=== PATIENT | female | born 2000 | race Caucasian/White ===

== ENCOUNTER 2022-09-29 13:27 | Outpatient (CLI) | payer OTHER ==
--- NOTE | 2022-09-29 16:49 | MRI Report ---
PROCEDURE: LUMBAR SPINE WO INDICATIONS: LOW BACK PAIN TECHNIQUE: Noncontrast sagittal T1 spin echo and T2 fast echo, sagittal STIR, axial T1 and T2 fast spin echo thr ough the lumbar spine. In cases with scoliosis, additional coronal T2 fast spin echo may be performe d. COMPARISON: None. FINDINGS: Image quality: Excellent. Alignment and Curvature: There is normal bony alignment. Bone Marrow: Marrow is of normal overall signal. No acute vertebral body compression fractures. Spinal Cord: Conus medullaris terminates at the L2 level. Visualized cord demonstrates normal signa l and size. Paraspinous Soft Tissues: No paravertebral masses. T12-L1: Normal. L1-L2: Normal. L2-L3: Minor ligamentum flavum hypertrophy. Otherwise normal. L3-L4: Normal. L4-L5: Minimal circumferential disc bulge. No significant encroachment on the lateral recess ease o r central canal. No foraminal narrowing. L5-S1: Mild diffuse disc desiccation and slight posterior disc height loss. Small broad-based poste rior disc bulge. There is a small central and left central disc herniation with trace amount of extru ded material just below the disc line which encroaches on the left lateral recess, compressing and di splacing the left S1 nerve root. No significant central canal or neural foraminal stenosis. IMPRESSION: 1. Small L5-S1 disc herniation which may affect the left S1 nerve root. Correlate clinically. Reviewed by: Aurea Kang MD on 09/29/2022 3:48 PM [facility] Approved by: Aurea Kang MD on 09/29/2022 3:48 PM [facility] Station ID: [id number]
== END 2022-09-29 13:28 | disposition home or self-care (01) ==
LOC: DI 13:27
DX: M51.27 Other intervertebral disc displacement, lumbosacral region (principal)

== ENCOUNTER 2024-01-12 08:00 | Outpatient (CLI) | payer OTHER ==
[2024-01-12 16:28] LABS: BILIRUBIN,URINE NEGATIVE (NEGATIVE); GLUCOSE, URINE (UA) NEGATIVE (NEGATIVE); KETONES,URINE (UA) TRACE mg/dL (NEGATIVE); LEUKOCYTE ESTERASE, URINE NEGATIVE (NEGATIVE); NITRITE,URINE NEGATIVE (NEGATIVE); OCCULT BLOOD,URINE NEGATIVE (NEGATIVE); PROTEIN,URINE NEGATIVE (NEGATIVE); UROBILINOGEN,URINE 0.2 (NORMAL) E.U./dL (NORMAL)
[2024-01-12 16:39] LABS: BACTERIA,URINE None Seen /HPF (None Seen); CLARITY,URINE CLEAR (CLEAR); CRYSTALS,URINE 3-5 Uric Acid /LPF; RBC,URINE None Seen /HPF (0-5); SQUAMOUS EPITHELIAL CELL,UR RARE Squamous (<= Few); WBC,URINE 0-3 /HPF (0-5)
== END 2024-01-12 23:59 | disposition home or self-care (01) ==
LOC: LAB.WC 08:00
PROVIDERS: ATTEND Nurse Practitioner
DX: Z34.00 Encounter for supervision of normal first pregnancy, unspecified trimester (principal)
CPT/HCPCS: 81001; 87086

== ENCOUNTER 2024-08-17 12:44 | Inpatient (IN) ==
[2024-08-17] MEDS: AMPICILLIN 2 GM in SODIUM CHLORIDE 0.9% MINIBAG 100 ML IV SCH (12:27)
[~2024-08-17 12:44] MED LIST: AMPICILLIN 2 GM VIAL IV ONE
[2024-08-17] MEDS ORDERED: OXYTOCIN/SODIUM CHLORIDE 500 ML IV PRN ×2 (12:49→15:28)
[2024-08-17] MEDS ORDERED: NIFEdipine 10 MG CAPSULE PO PRN ×2 (12:49→15:28)
[2024-08-17] MEDS ORDERED: METHYLERGONOVINE 0.2 MG/ML VIAL IM PRN (12:49)
[2024-08-17] MEDS ORDERED: OXYTOCIN 10 UNIT/ML VIAL IM PRN (12:49)
[2024-08-17] MEDS ORDERED: TRANEXAMIC ACID IN NACL 1,000 MG/100 ML BAG IV PRN (12:49)
[2024-08-17] MEDS ORDERED: miSOPROStoL 200 MCG TABLET PR PRN (12:49)
[2024-08-17] MEDS ORDERED: fentaNYL 100 MCG/2 ML VIAL IVP PRN (12:49)
[2024-08-17] MEDS ORDERED: LABETALOL 20 MG/4 ML SYRINGE IVP PRN ×5 (12:49→15:28)
[2024-08-17] MEDS ORDERED: TERBUTALINE 1 MG/ML VIAL SUBQ PRN (12:49)
[2024-08-17] MEDS ORDERED: SODIUM CHLORIDE FLUSH 0.9% 10 ML SYRINGE IVP PRN (12:49)
[2024-08-17] MEDS ORDERED: hydrALAZINE INJ 20 MG/ML VIAL IVP PRN ×3 (12:49→15:28)
--- OUTSIDE RECORDS SUMMARY | 2024-08-17 12:55 | EXTERNAL MEDICAL SUMMARY RPT | Continuity of Care Document ---
Author Organization [facility] Address [address] [place] [id number] Phone Problems date description facility 2024-05-24 11:29 Encounter for superv ision of normal first , second trimester [facility] 2024-05-24 11:29 Encounter for superv ision of normal , unspecified, unspecified trimester [facility] 2024-05-25 00:06 Encounter for superv ision of normal first , second trimester [facility] 2024-05-25 00:06 Encounter for superv ision of normal , unspecified, unspecified trimester [facility] 2024-05-25 14:49 Encounter for superv ision of normal first , second trimester [facility] 2024-05-25 18:35 Abnormal glucose complicating p regnancy [facility] 2024-05-28 11:24 Abnormal glucose complicating p regnancy [facility] 2024-05-29 08:09 Abnormal glucose complicating p regnancy [facility] 2024-05-30 00:03 Abnormal glucose complicating p regnancy [facility] 2024-06-08 14:18 Encounter for immunization id [facility] 2024-06-09 00:01 Encounter [facility] 2024-06-19 15:22 Other specified noninflammatory disorders of vagina [facility] 2024-06-19 15:22 Other specified preg janes related conditions, unspecified trimester [facility] 2024-06-19 15:22 Encounter for screen ing for infections with a predominantly sexual mode of transmission [facility] 2024-06-20 00:02 Other specified noninflammatory disorders of vagina [facility] 2024-06-20 00:02 Other specified preg janes related conditions, unspecified trimester [facility] 2024-06-20 00:04 Other specified noninflammatory disorders of vagina [facility] 2024-06-20 00:04 Other specified preg janes related conditions, unspecified trimester [facility] 2024-06-20 00:04 Encounter for screen ing for infections with a predominantly sexual mode of transmission [facility] 2024-06-23 11:28 Other specified preg janes related conditions, unspecified trimester [facility] 2024-07-26 10:36 Other infections wit h a predominantly sexual mode of transmission complicating , first trimester [facility] 2024-07-26 10:36 Encounter for superv ision of normal first , unspecified trimester [facility] 2024-07-26 10:36 Encounter for superv ision of normal , unspecified, unspecified trimester [facility] 2024-07-26 10:37 Other infections wit h a predominantly sexual mode of transmission complicating , first trimester [facility] 2024-07-26 10:37 Encounter for superv ision of normal first , unspecified trimester [facility] 2024-07-26 10:37 Encounter for superv ision of normal first , second trimester [facility] 2024-07-26 10:38 Other specified anxiety disorde rs [facility] 2024-07-26 10:38 Abnormal glucose complicating p regnancy [facility] 2024-07-26 10:39 Encounter for immunization [facility] [employer] 2024-08-03 14:04 Encounter for screeni ng for Streptococcus B [facility] 2024-08-03 14:39 Encounter for screeni ng for Streptococcus B [facility] 2024-08-03 14:51 Encounter for screeni ng for Streptococcus B [facility] 2024-08-03 14:53 Encounter for screeni ng for Streptococcus B [facility] 2024-08-04 00:03 Encounter for screeni ng for Streptococcus B [facility] 2024-08-08 15:10 Encounter for screeni ng for Streptococcus B [facility] 2024-08-10 14:27 Encounter for screen ing for infections with a predominantly sexual mode of transmission [facility] 2024-08-10 16:10 Encounter for screen ing for infections with a predominantly sexual mode of transmission [facility] 2024-08-13 08:44 Encounter for screen ing for infections with a predominantly sexual mode of transmission [facility] 2024-08-14 12:06 Encounter for screen ing for infections with a predominantly sexual mode of transmission [facility] 2024-08-15 09:49 Encounter for superv ision of normal first , unspecified trimester [facility] Results/Labs test date facility value unit notes Result panel 1 HGB - HEMOGLOBIN 2024-05-24 12:40 [facility] 11.7 g /dl (missing) RED CELL DISTRIBUTION WIDTH 2024-05-24 12:40 [facility] 12.6 % (missing) GLUCOSE,1H PP 50GM DOSE 2024-05-24 12:40 [facility] 141 mg/dl Social History date description facility
[2024-08-17 13:22] LABS: BASOPHILS % (AUTO) 0.2 %; EOSINOPHILS % (AUTO) 0.2 %; HCT - HEMATOCRIT 35.4 % (37.0-47.0); HGB - HEMOGLOBIN 10.9 g/dL (12.0-16.0); LYMPHOCYTES # (AUTO) 1.5 10^3/uL (1.5-3.5); MEAN CORPUSCULAR HEMOGLOBIN 24.9 pg (27.0-31.0); MEAN CORPUSCULAR HGB CONC 30.8 g/dL (32.0-36.0); MEAN PLATELET VOLUME 10.7 fL (7.9-10.8); MONOCYTES # (AUTO) 0.5 10^3/uL (0.0-1.0); MONOCYTES % (AUTO) 3.8 %; NEUTROPHILS # (AUTO) 10.3 10^3/uL (1.5-6.6); NEUTROPHILS % (AUTO) 83.4 %; PLT - PLATELET COUNT 296 10^3/uL (130-450); RED BLOOD COUNT 4.37 10^6/uL (4.20-5.40); RED CELL DISTRIBUTION WIDTH 14.4 % (12.0-15.0); WHITE BLOOD COUNT 12.3 x10^3/uL (4.8-10.8)
[2024-08-17] MEDS: OXYTOCIN/SODIUM CHLORIDE 500 ML IV SCH (14:28)
[2024-08-17] MEDS: LACTATED RINGERS 1,000 ML IV PRN (14:29)
[2024-08-17] MEDS: fentaNYL 100 MCG/2 ML VIAL IVP PRN (15:01)
[2024-08-17] MEDS: SODIUM CHLORIDE FLUSH 0.9% 10 ML SYRINGE IVP SCH (15:03)
[2024-08-17] MEDS: miSOPROStoL 200 MCG TABLET BC PRN (15:11)
[2024-08-17] MEDS: lidocaine 1% 20 ML MDV ID PRN (15:13)
--- NOTE | 2024-08-17 15:27 | HISTORY & PHYSICAL EXAMINATION ---
Admit History Smoking Status: Never smoker Other Maternal History Other Maternal History: HPI: This 23 yo @ 38+3 weeks by 11+2 week ultrasound. She was able to doze some last night but her contractions started to become intermittent at 0430 then significantly increased in pain by 1030. The contractions became stronger and closer together. She presented to clinic for SVE and was 8cm and was wheelchaired to L&D from clinic. Upon arrival her cervix was 9.5 cm/ +1 station and vertex with intact membranes and began pushing. Screaming in pain. She has been a patient of [facility] for the duration of her which has remained uncomplicated with the exception anxiety, managed well on zoloft and positive Chlamydia in the first trimester followed by negative rescreen x2. ROS: No Headache, visual changes or right upper quadrant abdominal pain. Denies significant N/V. Denies urinary urgency or dysuria. All other symptoms reviewed and were negative except per HPI. In the event of an emergency, accepts the administration of blood products. LMP: 11/12/2023 RAMSEY by LMP:08/18/2024 U/S: Final RAMSEY: 08/19/2023 ALLERGiES: Latex RX: stool softner, mag, pnv, zoloft In the event of an emergency, DOES accept the administration of blood products. Medical Hx: Anxiety/Depression, Herniated lumbar intervertebral disc Surgical Hx: None Social Hx: Monogamous with male partner George who is active duty. She is also active duty [place]. Denies current use of alcohol or tobacco, marijuana or other recreational drugs. Reports that she is safe in current relationship. FOB: George Mehta-currently deployed sex/name: It's a BOY! PROBLEMS: FOB had hole in heart as a baby +Chlamydia in 1st trimester, TYLER negative. -3rd trimester GC/CT @ 29wks - negative Anxiety/Depression: -Sertraline initiated @ 26wks -Counseling referral initiated Pre- weight: 120 BMI: 19.4 Blood type: A Antibody screen: positive CBC: PLT 256 HCT 38.9 HGB 13.0 Rubella: Immune VZV: Immune HBsAg: Negative HepC: RPR/AB-EIA: NR HIV: NR Flu: declined COVID: PAP: GC/CT: + chlam 1st trimester (treated) -TYLER: collected 03/30/2024-negative - 3rd trimester GCCT: (06/19/2023) negative HSV: denies in self and partner Genetic Testing: - Quad screen neg FAS: 04/16 Placenta: Posterior, no previa Cord: 3VC ARPIT: 11.5cm EFW: 51%tile 50gm GCT: 141 3 hr GTT: F 83; 1h 182; 2hr 147 hr; 113 TDAP: 06/08/2024 Breast Pump: 06/08/2024 3rd trimester 11.7/36.5, PLT 273 RPR: NR GBS: Positive 08/03/24 3rd trimester GCCT: (06/19/2023) negative Delivery plan: MOD: Anticipate contraception: Physical exam: Normocephalic, atraumatic Heart RRR w/o M/G/R Lungs CTAB Abdomen gravid, soft, nontender. EFW 2900 FHR baseline 130, moderate variability, + accelerations, no decelerations Contractions palpate moderate every 3-7 minutes with soft resting tone SVE 9.5/+1 station, vertex, membranes intact Bilateral LE's no edema Transitional labor mood behaviors Assessment: 23 yo @ 38+2 weeks gestation by 11 wk U/S second stage labor FHR 130 Cat I GBS POSITIVE Plan: Admit to FBP for delivery Begin GBS prophylaxis, ampicillin 2g loading followed by 1g q 4 hours. Continuous monitoring/ Intermittent heart rate auscultation. Nitrous oxide PRN. Anticipate . Meds/Allgy Home Medications Ambulatory Orders Medication Instructions Recorded Confirmed vitamins no.68-iron 28 1 cap PO QDAY 02/10/24 08/17/24 mg-folate no.6 1 mg-dha 400 mg capsule sertraline 50 mg tablet 50 mg PO QDAY #90 tabs 05/25/24 08/17/24 Allergies Allergies Allergy/AdvReac Type Severity Reaction Status Date / Time Latex, Natural Rubber Allergy Intermediate Rash Verified 08/16/24 17:12 PFSH Active Problems All Active Problems (Updated 06/19/24 @ 15:21 by Saira Gabriel MA) Vaginal discharge during (Acute) Anxiety associated with depression (Acute) Situational mixed anxiety and depressive disorder (Acute) (Acute) Supervision of normal first (Acute) Sexually transmitted infection during in first trimester (Acute) Chronic back pain (Acute) Herniated lumbar intervertebral disc (Acute) Primigravida (Acute) Surgical History Surgical History (Updated 02/10/24 @ 13:30 by Saira Gabriel MA) H/O breast biopsy 2017 Family History Family History (Updated 02/15/24 @ 10:34 by Iona Goodman, [place]) Paternal grandfather No problems noted. Maternal grandmother No problems noted. Paternal grandmother Skin cancer Social History Social History (Updated 02/15/24 @ 10:35 by Iona Goodman RN) Smoking Status: Never smoker Second hand tobacco smoke exposure: No Do you dip or chew tobacco?: No Do you vape?: No Living arrangement: At home Level: Independent Do you feel safe in your home environment?: Yes Suffered physical, verbal, emotional, or financial abuse?: No History of Abuse: No ETOH Use: None Substance Use: denies use Occupation: [employer] Plan for Labor Plan For Labor I expect patient to be DC'd or transferred within 96 hours.: Yes Conclusion/Plan Lab Results 08/17/24 12:15
[2024-08-17] MEDS ORDERED: SIMETHICONE CHEW 80 MG TABLET PO PRN (15:28)
[2024-08-17] MEDS ORDERED: LABETALOL 5 MG/1 ML 20 ML MDV IVP PRN (15:28)
[2024-08-17] MEDS ORDERED: NALOXONE 0.4 MG/ML VIAL IVP PRN (15:28)
--- NOTE | 2024-08-17 15:28 | DELIVERY NOTE ---
Delivery Note Delivery Comments (Free Text/Narrative) Delivery Comments (Free Text/Narrative): This 23 -year-old, G 1 P 0 @ 38+3 weeks gestation by 11 week ultrasound @ 1230 after SVE in clinic and quickly progressed to second stage. GBS positive, treated x1 ampicillin. Cervix was 9.5 and Vertex presentation by exam. Pitocin max dose of 2mu/min was introduced shortly before delivery to expidite pushing as patient was not tolerating unmedicated pushing. FHR pattern demonstrated 135 baseline with a mostly category I tracing through the second stage. Precipitous labor course. SROM with pushing @ 1247. : Normal spontaneous vaginal delivery of a viable male on 08/18/2024 @ 1455. The was placed on maternal abdomen, stimulated, dried and placed skin to skin. Apgars 9 & 9 @ 1 & 5 minutes. The umbilical cord was allowed to stop pulsating at which time it was doubly clamped by delivering provider and cut by FOB. 3VC. Cord blood was obtained. Fundal massage and gently cord traction applied for active management of the third stage, placenta delivered spontaneously and intact and appeared normal. QBL 1247g. Placenta was not sent to pathology. Pitocin administered via IV for hemostasis and allowed to run freely. Bleeding remained brisk, uterine atony. Uterine massage was perfor med until uterus was deemed firm, would become boggy, and massage repeated until firm. weight: 3194g. Perineum intact. Bilateral labial minora superficial lacerations, hemostatic, not repaired. Upon re-inspection the patient was hemostatic. Uterus again massaged and found to be firm. Needle and sponge counts were correct. Uterine fundus firm and there is no excessive bleeding. Tissues well approximated. Skin to skin initiated. Family bonding well. Both mother and baby are in stable condition.
[2024-08-17] MEDS: IBUPROFEN 600 MG TABLET PO PRN (16:43)
[2024-08-17] MEDS: GABAPENTIN 300 MG CAPSULE PO PRN (16:43)
[2024-08-17] MEDS: ACETAMINOPHEN 500 MG TABLET PO PRN (16:44)
--- NOTE | 2024-08-17 17:10 | PHARMACY PROGRESS NOTE ---
Best Possible Medication History Admit Date and Time: 08/17/24 [id number] Home Medications Medication Instructions Recorded Confirmed Type vitamins no.68-iron 28 1 cap PO QDAY 02/10/24 08/17/24 History mg-folate no.6 1 mg-dha 400 mg capsule sertraline 50 mg tablet 50 mg PO QDAY #90 tabs 05/25/24 08/17/24 Rx Processed by: Pharmacy Medications reviewed in ED?: Yes Medication History completed: Yes Patient Interview: Pt unable to participate Secondary Source(s): Insurance records [facility] Statement: Per RN interview with patient and review of [facility] Rx records. As the person ultimately responsible for medication therapy, providers are able to order a medication from an existing home medication list in [facility] via the "Reconcile Routine" prior to Confirmation of that medication by student support counselor. Such practice is discouraged except when the physician, in their clinical judgment, deems that a medical need exists for a medication without regard to previous use.
[2024-08-17] MEDS: DOCUSATE SODIUM 100 MG CAPSULE PO SCH (21:48)
[2024-08-18] MEDS: PRENATAL VITAMIN TABLET PO SCH (08:38)
[2024-08-18] MEDS: SERTRALINE 50 MG TABLET PO SCH (08:39)
--- NOTE | 2024-08-18 09:47 | PROVIDER PROGRESS NOTE ---
Subjective Prog Note Date Prog Note Date: 08/18/24 Prog Note Time: 17:00 Subjective Subjective: Subjective: Patient reports she is doing well. Comfortable WITHOUT narcotic pain management Lochia appropriate. Denies heavy bleeding. Ambulating. Pelvic and abdominal pain well-controlled. Tolerating oral intake. Diet: Regular. Voiding without difficulty. Passing flatus. Denies BM. Patient is bonding with baby in room Breast feeding going well. Denies feeling lightheaded, dizzy or excessively fatigued. Objective General: Alert, oriented, no apparent distress. Cardiovascular: No edema. Lungs: No increased work of breathing. Abdomen: Uterus firm. Below umbilicus. No guarding or rebound tenderness. Extremities: No pain on palpation. Distal pulses intact. Assessment and Plan day 1. 23yo s/p (unmedicated) on 08/17/2024 following spontaneous onset of precipitous labor elective. - Routine - Anticipate discharge tomorrow - well supported by . Acute anemia due to hemorrhage. -H&H drop from 10.9/35.4 to 8.2/26.1 -Asymptomatic, showered and ambulated without dizziness, lightheadedness or SOA - Discussed iV iron vs oral iron. Would like to begin oral iron as she is not having any symptoms other than fatigue which she more attributes to sleep interference. Current Medications Current Medications Current Medications: Current Medications Generic Name Dose Route Start Last Admin Trade Name Freq PRN Reason Stop Dose Admin Acetaminophen 1,000 mg 08/17/24 15:28 08/18/24 08:37 Acetaminophen 500 Mg Tablet PO 1,000 mg Q8HR PRN Administration Mild Pain or Fever>38C(100.4F) Docusate Sodium 100 mg 08/17/24 21:00 08/18/24 08:40 Docusate Sodium 100 Mg Capsule PO 100 mg BID DERRICK Administration Gabapentin 300 mg 08/17/24 15:44 08/18/24 08:40 Gabapentin 300 Mg Capsule PO 300 mg TID PRN Administration Pain or Fever > 38C (100.4F) Hydralazine HCl 5 - 10 mg 08/17/24 12:49 Hydralazine Inj 20 Mg/Ml Vial IVP Q20M PRN SBP> or= 160 OR DBP> or= 110 Protocol Hydralazine HCl 10 mg 08/17/24 15:28 Hydralazine Inj 20 Mg/Ml Vial IVP .ONCE PRN SBP> or= 160 OR DBP> or= 110 Protocol Hydralazine HCl 5 - 10 mg 08/17/24 15:28 Hydralazine Inj 20 Mg/Ml Vial IVP Q20M PRN SBP >=160 and/or DBP >=110 Protocol Lactated Ringer's 500 mls @ 999 mls/hr 08/17/24 12:49 08/17/24 14:29 Lr IV 125 mls/hr PRN PRN Administration NEEDED PER PROVIDER ORDERS Tranexamic Acid 1,000 mg in 100 mls @ 600 mls/hr 08/17/24 12:49 Tranexamic 1,000 Mg/100ml-Nacl IV Q30M PRN EBL >1200mL and within 3hr Oxytocin/Sodium Chloride 500 mls @ 999 mls/hr 08/17/24 15:28 Pitocin/Sodium Chloride IV PRN PRN POST- HEMORR PREVENTION Protocol 999 MILLIUNIT/MIN Ibuprofen 600 mg 08/17/24 15:28 08/18/24 05:00 Ibuprofen 600 Mg Tablet PO 600 mg Q6HR PRN Administration Moderate Pain (Level 4-6) Labetalol HCl 20 - 80 mg 08/17/24 12:49 Labetalol 20 Mg/4 Ml Syringe IVP Q10M PRN SBP> or= 160 OR DBP> or= 110 Protocol Labetalol HCl 20 mg 08/17/24 12:49 Labetalol 20 Mg/4 Ml Syringe IVP .ONCE PRN SBP> or= 160 OR DBP> or= 110 Protocol Labetalol HCl 20 - 40 mg 08/17/24 12:49 Labetalol 20 Mg/4 Ml Syringe IVP Q10M PRN SBP> or= 160 OR DBP> or= 110 Protocol Labetalol HCl 20 - 80 mg 08/17/24 15:28 Labetalol 5 Mg/1 Ml 20 Ml Mdv IVP Q10M PRN SBP> or= 160 OR DBP> or= 110 Protocol Labetalol HCl 20 - 40 mg 08/17/24 15:28 Labetalol 20 Mg/4 Ml Syringe IVP Q10M PRN SBP> or= 160 OR DBP> or= 110 Protocol Labetalol HCl 20 mg 08/17/24 15:28 Labetalol 20 Mg/4 Ml Syringe IVP .ONCE PRN SBP >=160 and/or DBP >=110 Protocol Methylergonovine Maleate 0.2 mg 08/17/24 12:49 Methylergonovine 0.2 Mg/Ml Vial IM .ONCE PRN Hemorrhage Misoprostol 800 mcg 08/17/24 12:49 Misoprostol 200 Mcg Tablet NM .ONCE PRN Hemorrhage Naloxone HCl 0.4 mg 08/17/24 15:28 Naloxone 0.4 Mg/Ml Vial IVP .ONCE PRN Opioid Overdose Nifedipine 10 - 20 mg 08/17/24 15:28 Nifedipine 10 Mg Capsule PO Q20M PRN SBP >=160 and/or DBP >=110 Protocol Oxytocin 10 unit 08/17/24 12:49 Oxytocin 10 Unit/Ml Vial IM .ONCE PRN Step One if no IV access. Multivit/Folic Acid/Iron 1 tab 08/18/24 08:00 08/18/24 08:38 Vitamin Tablet PO 1 tab DAILYWM DERRICK Administration Sertraline HCl 50 mg 08/18/24 09:00 08/18/24 08:39 Sertraline 50 Mg Tablet PO 50 mg DAILY DERRICK Administration Simethicone 80 mg 08/17/24 15:28 Simethicone Chew 80 Mg Tablet PO TID PRN Gas Sodium Chloride 10 ml 08/17/24 12:49 Sodium Chloride Flush 0.9% 10 Ml Syringe IVP PRN PRN NEEDED PER PROVIDER ORDERS Sodium Chloride 10 ml 08/17/24 13:00 08/17/24 15:03 Sodium Chloride Flush 0.9% 10 Ml Syringe IVP 10 ml Q8H DERRICK Administration Objective Vital Signs/Intake & Output Vital Signs: Vital Signs x48h Temp Pulse Resp BP BP Pulse Ox 08/18/24 08:43 37.1 C 86 16 113/60 100 08/18/24 06:00 37.0 C 84 18 110/55 L 97 08/18/24 02:00 36.8 C 80 16 110/60 99 Intake & Output: Intake & Output 08/15/24 08/16/24 08/17/24 08/18/24 23:59 23:59 23:59 23:59 Intake Total 1500 / 1500 Output Total 750 / 750 500 / 500 Balance 750 / 750 -500 / -500 Weight (kg) 142 lb Lab Results 08/18/24 15:34 Other Labs: Lab Results x24hrs 08/17/24 Range/Units 12:15 WBC 12.3 H (4.8-10.8) x10^3/uL RBC 4.37 (4.20-5.40) 10^6/uL Hgb 10.9 L (12.0-16.0) g/dL Hct 35.4 L (37.0-47.0) % MCV 81.0 (81.0-99.0) fL MCH 24.9 L (27.0-31.0) pg MCHC 30.8 L (32.0-36.0) g/dL RDW 14.4 (12.0-15.0) % Plt Count 296 (130-450) 10^3/uL MPV 10.7 (7.9-10.8) fL Neut # (Auto) 10.3 H (1.5-6.6) 10^3/uL Lymph # (Auto) 1.5 (1.5-3.5) 10^3/uL [place] # (Auto) 0.5 (0.0-1.0) 10^3/uL Eos # (Auto) 0.0 (0.0-0.7) 10^3/uL Baso # (Auto) 0.0 (0.0-0.1) 10^3/uL Absolute Nucleated RBC 0.00 x10^3/uL Nucleated RBC % 0.0 /100WBC
[2024-08-18 15:40] LABS: BASOPHILS % (AUTO) 0.3 %; EOSINOPHILS % (AUTO) 0.2 %; HCT - HEMATOCRIT 26.1 % (37.0-47.0); HGB - HEMOGLOBIN 8.2 g/dL (12.0-16.0); LYMPHOCYTES # (AUTO) 2.1 10^3/uL (1.5-3.5); LYMPHOCYTES % (AUTO) 15.2 %; MEAN CORPUSCULAR HEMOGLOBIN 25.5 pg (27.0-31.0); MEAN CORPUSCULAR HGB CONC 31.4 g/dL (32.0-36.0); MEAN CORPUSCULAR VOLUME 81.3 fL (81.0-99.0); MEAN PLATELET VOLUME 10.1 fL (7.9-10.8); MONOCYTES % (AUTO) 7.3 %; NEUTROPHILS # (AUTO) 10.3 10^3/uL (1.5-6.6); NEUTROPHILS % (AUTO) 76.6 %; PLT - PLATELET COUNT 238 10^3/uL (130-450); RED BLOOD COUNT 3.21 10^6/uL (4.20-5.40); RED CELL DISTRIBUTION WIDTH 14.5 % (12.0-15.0); WHITE BLOOD COUNT 13.5 x10^3/uL (4.8-10.8)
[2024-08-18 22:53] VITALS: O2SAT 99
[2024-08-18] MEDS: ETONOGESTREL 68 MG IMPLANT SUBQ ONE (23:29)
[2024-08-18] MEDS: LIDOCAINE 2%-EPI 1:100000 20 ML MDV SUBQ ONE (23:30)
--- NOTE | 2024-08-19 07:41 | Discharge Summary ---
Discharge Summary Admit Date: 08/17/24 Discharge Date: 08/19/24 HPI History of Present Illness: Date of Admission: 08/17/2024 Date of Discharge: 08/19/2024 Diagnosis on admission: 23 yo @ 38+2 weeks gestation by 11 wk U/S second stage labor FHR 130 Cat I GBS POSITIVE Diagnosis on Discharge 23 yo s/p precipitous unmedicated labor followed by viable male intact perineum, bilateral superficial labial lacerations hemorrhage with H&H drop from 10.9/35.4 to 8.2/26.1, bleeding now minimal Unremarkable course well. Appreciates help from Nursing team. Physical exam: Normocephalic, atraumatic No increased work of breathing Normal uterine involution, FF below umbilicus scant rubra bleeding Minimal perineal discomfort. Ice and topicals in addition to IBU helping Bilateral LE's no edema Mood is good. Brief History: This 23 -year-old, G 1 P 0 @ 38+3 weeks gestation by 11 week ultrasound @ 1230 after SVE in clinic and quickly progressed to second stage. GBS positive, treated x1 ampicillin. Cervix was 9.5 and Vertex presentation by exam. Pitocin max dose of 2mu/min was introduced shortly before delivery to expidite pushing as patient was not tolerating unmedicated pushing. FHR pattern demonstrated 135 baseline with a mostly category I tracing through the second stage. Precipitous labor course. SROM with pushing @ 1247. : Normal spontaneous vaginal delivery of a viable male on 08/18/2024 @ 1455. The was placed on maternal abdomen, stimulated, dried and placed skin to skin. Apgars 9 & 9 @ 1 & 5 minutes. The umbilical cord was allowed to stop pulsating at which time it was doubly clamped by delivering provider and cut by FOB. 3VC. Cord blood was obtained. Fundal massage and gently cord traction applied for active management of the third stage, placenta delivered spontaneously and intact and appeared normal. QBL 1247g. Placenta was not sent to pathology. Pitocin administered via IV for hemostasis and allowed to run freely. Bleeding remained brisk, uterine atony. Uterine massage was performed until uterus was deemed firm, would become boggy, and massage repeated until firm. weight: 3194g. Perineum intact. Bilateral labial minora superficial lacerations, hemostatic, not repaired. Upon re-inspection the patient was hemostatic. Uterus again massaged and found to be firm. She has been doing well in her course. She is ambulating and tolerating a regular diet. She is urinating without difficulty and her lochia is normal. Her pain is well controlled without narcotic management. She will be discharged to home today on day 2 and encouraged IBU, tylenol and stool softeners PRN. Significant H&H drop PPD #1. Will send oral iron to pharmacy. Declined IV iron as she is asymptomatic. She intends to follow up with [facility] in 1 week for telehealth. V scheduled for 08/23/2024 @ 0940. Desires Nexplanon for contraceptive but not available from hospital from pharmacy during the time of her stay. Feels her mood is in a good place with zoloft 50mg daily and intends to continue to take the medication. Has counsellor established as well. She has been given precautions to call if she has any new or worsening sx such as fevers, chills, abdominal pain, increasing bleeding, or foul smelling vaginal lochia. preeclamptic precautions reviewed as well. VZV: immune Rubella: immune RH: A+ ALLERGIES Allergies Allergy/AdvReac Type Severity Reaction Status Date / Time Latex, Natural Rubber Allergy Intermediate Rash Verified 08/16/24 17:12 MEDICATIONS Ambulatory Orders Medication Instructions Recorded Confirmed vitamins no.68-iron 28 1 cap PO QDAY 02/10/24 08/17/24 mg-folate no.6 1 mg-dha 400 mg capsule sertraline 50 mg tablet 50 mg PO QDAY #90 tabs 05/25/24 08/17/24 PHYSICAL EXAM AT DISCHARGE Vital Signs: Vital Signs x48h Temp Pulse Resp BP Pulse Ox 08/19/24 03:00 37 C 83 16 107/59 L 99 LABS 08/18/24 15:34 Discharge Plan Discharge Patient Disposition: Home, Self Care Medically Cleared Date:: 08/19/24 Prescriptions: Continued [id number] no6-dha 28 mg iron- 1 mg-400 mg capsule 1 cap PO QDAY sertraline 50 mg tablet 50 mg PO QDAY Qty: 90 4RF Rx Instructions: take 1/2 tablet by mouth once daily x 4 days, then one tablet by mouth once daily Print Language: Croatian Patient Instructions: Anemia, Breastfeed How To, Breastfeed Holds, Breastmilk Expressing, Anatomy, Benefits, Self Care
[2024-08-19 17:09] VITALS: BP 112/60; TEMP 98.8
--- NOTE | 2024-08-19 17:15 | Labor Flowsheet ---
Labor Flowsheet Datetime Report Generated by CPN: 08/19/2024 17:15 Datetime: 08/17/2024 15:24 Pulse: 117 SpO2 (%): 98 Datetime: 08/17/2024 15:14 VITAL SIGNS NBP Sys/Alaina/Mean (mmHg): 115 : 71 : 75 Datetime: 08/17/2024 15:03 Stage 2 Comments: placenta Datetime: 08/17/2024 15:01 Analgesics/Sedatives: Fentanyl (mcg) @ 100 Medication Comments: For assessment of perineal tissue, per verbal request Nicole WRIGHTM Datetime: 08/17/2024 14:58 MEDICATIONS Pitocin (milliunits): Increased to @ 999 Datetime: 08/17/2024 14:55 Stage of : Datetime: 08/17/2024 14:45 UTERINE ACTIVITY Monitor Mode: External Frequency (min): 2-3 Quality: Strong Duration (sec): 50-70 Pattern: Normal: <= 5 Contractions in 10 Minutes Resting Tone (Palpate): Relaxed ASSESSMENT A Monitor Mode: External US FHR Baseline Rate : 125 Variability: Moderate 6-25 bpm Accelerations: 15X15 Decelerations: Late Category: Category II Comments: RN and provider remain at bedside through labor. Delivery imminent Datetime: 08/17/2024 14:39 COMMUNICATION LaborFlag: Labor Datetime: 08/17/2024 14:30 Pitocin Checklist: At Least 1 Acceleration of 15 bpm x 15 Seconds in 30 Minutes or Adequate Variabi lity; No More than 1 Late Deceleration Occurred in Past 30 Minutes; No More than 2 Variable Decelerat ions > 60 Seconds in Duration and decreasing >60 bpm in 30 minutes; No More than 5 Uterine Contractio ns in 10 Minutes for any 20 Minute Interval; Uterus Palpates Soft between Contractions Datetime: 08/17/2024 14:15 PATIENT CARE Oxygen Method: Room Air Datetime: 08/17/2024 13:35 VAGINAL EXAM Dilatation (cm): 10.0 Vaginal Exam Comments: pt declined VE when started pushing. now after pushing some is complete Datetime: 08/17/2024 13:29 PAIN Pain Coping: Crying; Writhing Datetime: 08/17/2024 13:10 Membranes Ruptured Date/Time: 08/17/2024 12:47 Amniotic Fluid Amount: Moderate Amniotic Fluid Odor: None Datetime: 08/17/2024 12:47 Membrane Status: Ruptured Membranes Rupture Method: Spontaneous Amniotic Fluid Color: Clear Datetime: 08/17/2024 12:45 STAGE 2 Pushing: Urge to Push; Refusing to Push Pushing Position: Pushing with Contractions; Pushing Left Side Pushing Progress: No Descent with Effective Pushing
== END 2024-08-19 15:00 | disposition home or self-care (01) | DRG 806 ==
LOC: WFO 12:44 → FBP 12:45
PROVIDERS: ATTEND Nurse Practitioner